=== PATIENT | female | born 1995 | race Caucasian/White ===

== ENCOUNTER → 2018-12-13 | Outpatient (CLI) | payer OTHER ==
[2018-12-13 12:27] LABS: ALBUMIN 4.1 GM/DL (3.2-5.2); ALT/SGPT 21 U/L (12-78); BILIRUBIN,DIRECT < 0.1 MG/DL (0.0-0.2); BILIRUBIN,TOTAL 0.4 MG/DL (0.2-1.0); CHOLESTEROL LEVEL 149 MG/DL (<200); CHOLESTEROL RISK RATIO 2.811 (<5); ESTRADIOL 45.8 PG/ML; HDL CHOLESTEROL 53 MG/DL (>40); LDL CHOLESTEROL 86 MG/DL (<100); LUTEINIZING HORMONE 5.1 mIU/mL; NON-HDL-C 96 MG/DL; PROLACTIN 9.8 NG/ML; TOTAL PROTEIN 7.4 GM/DL (6.4-8.2); TRIGLYCERIDES LEVEL 48 MG/DL (<150)
[2018-12-14 08:06] LABS: FREE ANDROGEN INDEX 1.1 (0.4-8.4); SEX HORM BINDING GLOB 96.8 nmol/L (24.6-122.0); TESTOSTERONE 31 ng/dL (8-48)
[2018-12-14 14:13] LABS: INSULIN LEVEL 5.7 uIU/mL (2.6-24.9)
== END ==
LOC: M WUC 10:25
DX: E28.2 Polycystic ovarian syndrome (principal)

== ENCOUNTER → 2018-12-17 | Outpatient (CLI) | payer OTHER ==
--- NOTE | 2018-12-20 01:39 | REP ---
Clinical: Pelvic pain. IUD placement. Technique: Transabdominal pelvic ultrasound followed by transvaginal examination for better evaluation of the endometrium and adnexa with color Doppler evaluation of the ovaries. Findings: Bladder is unremarkable and measures 11.8 x 8.5 x 9.7 cm . Normal anteverted uterus measures 7.6 x 4.0 x 5.0 cm . The endometrial complex measures 4.2 mm thickness. No discrete uterine or endometrial abnormalities are appreciated. IUD in central satisfactory position. Bilateral ovaries are normal in appearance and vascularity without evidence for torsion. Right ovary measures 3.8 x 2.4 x 2.3 cm ; R I = 0.49 . Left ovary measures 2.8 x 1.5 x 2.8 cm ; R I = 0.61 . No pelvic fluid or adnexal mass lesion . Impression: 1. Normal pelvic ultrasound. IUD in satisfactory position. Electronically Signed by Quinton Terrazas MD 12/20/2018 01:30 A
== END ==
LOC: M RAD 16:56
DX: Z97.5 Presence of (intrauterine) contraceptive device (principal)